=== PATIENT | female | born 1980 | race Caucasian/White ===

== ENCOUNTER 2019-03-15 18:55 | Outpatient (CLI) | payer MEDICAID, SELFPAY ==
[2017-03-23 17:31] VITALS: BMI 25.4
[2019-03-15 19:32] VITALS: BMI 32.3
[2019-03-15] MEDS: BUPRENORPHINE HCL 8 MG TAB.SUBL 12 MG SL (20:59)
[2019-03-15 22:05] VITALS: RESP 18
--- NOTE | 2019-03-16 09:57 | OB.TRI.NOTE ---
History of Present Illness Date of Service: 03/15/19 Was patient seen by the physician?: No Reason For Visit: MEDICATION Date of Service: 03/15/19 Final BLU: 05/21/19 Gestational age: 30 Weeks and 4 Days Allergies No Known Allergies Allergy (Verified 03/15/19 19:33) Physical Exam Vitals: Vital Signs Resp 18 03/15/19 22:05 NST - FHR Rate Baby A Baseline: 145 Variability:: Moderate Accelerations:: 15 x 15 Decelerations:: Variable NST Reactive:: Yes, Appropriate for gestational age FHR Category:: Category I - for > 20 min before d/c Uterine Activity:: quiet Impression/Plan 38-year-old 4 para 3 who gets care out of town and is out of her Subutex that she uses for opioid abuse disorder. We are able to confirm the patient's dose. She usually takes 8 mg of Subutex twice daily. She has not had a dose since 03/14/2019 per her report. Patient was given 12 mg sublingual. She was also having some anxiety and I offered her BuSpar but she declined. She is to return tomorrow for another dose. I had discussed with the patient over the phone and nursing discussed with the patient that if she is going to establish care locally, we would be happy to see her in our office for follow-up next week. However, we do not have an opioid use disorder clinic in our office, but work with local clinics who will prescribe the buprenorphine for her and we will coordinate the care. We will continue her at a dose that is appropriate to prevent acute withdrawal until she can follow-up on 03/17/2019 with [facility]. NST is reactive. Will be able to obtain records off of care everywhere.
== END 2019-03-15 22:05 | disposition home or self-care (01) ==
LOC: WPOUT 19:14 → WP 19:17
PROVIDERS: Visit Provider Obstetrics & Gynecology
DX: O76 Abnormality in fetal heart rate and rhythm complicating labor and delivery (principal); O09.523 Supervision of elderly multigravida, third trimester; O99.343 Other mental disorders complicating pregnancy, third trimester; F11.11 Opioid abuse, in remission; F41.9 Anxiety disorder, unspecified; Z3A.30 30 weeks gestation of pregnancy
CPT/HCPCS: 59025; 59050; 99218; G0378

== ENCOUNTER 2019-03-16 20:27 | Outpatient (CLI) | payer MEDICAID, SELFPAY ==
[2019-03-15 19:32] VITALS: BMI 32.3
[2019-03-16 20:57] VITALS: BMI 32.3
[2019-03-16] MEDS: BUPRENORPHINE HCL 8 MG TAB.SUBL 12 MG SL (21:06)
[2019-03-16 21:08] VITALS: RESP 18
--- NOTE | 2019-04-06 20:48 | OB.TRI.NOTE ---
History of Present Illness Date of Service: 03/16/19 Was patient seen by the physician?: No Reason For Visit: MEDICATION Date of Service: 03/16/19 Allergies No Known Allergies Allergy (Verified 03/16/19 20:59) Physical Exam Vitals: Vital Signs Resp 18 03/16/19 21:08 Impression/Plan 38-year-old high risk multigravida, advanced maternal age at 30 weeks 5 days located by opioid use disorder. Patient given a dose of Suboxone today, her continuing her home medication dose. She is to follow-up tomorrow with addiction medicine as scheduled, or return and we will arrange for this. Patient is transferring her care to this area from out of town, my office will contact her to schedule a follow-up obstetrical appointment.
== END 2019-03-16 21:15 | disposition home or self-care (01) ==
LOC: WPOUT 20:43 → WP 20:44
PROVIDERS: Visit Provider Obstetrics & Gynecology
DX: O09.523 Supervision of elderly multigravida, third trimester (principal); Z3A.30 30 weeks gestation of pregnancy; O99.323 Drug use complicating pregnancy, third trimester; F11.10 Opioid abuse, uncomplicated
CPT/HCPCS: 99218; G0378

== ENCOUNTER 2019-04-16 17:03 | Outpatient (CLI) | payer MEDICAID, SELFPAY ==
[2019-04-16 17:40] LABS: Hematocrit 37.5 % (37-47); Hemoglobin 12.6 g/dL (12.0-15.0); Mean Corp Hgb Conc 33.6 g/dL (32-36); Mean Corpuscular Hgb 30.4 pg (27.0-32.0); Mean Corpuscular Volume 90.4 fL (81-99); Mean Platelet Vol. 9.7 fl (6.2-12.0); Platelet Count 201 K/mm3 (150-450); RBC Distribution Width CV 12.2 % (11.6-14.6); RBC Distribution Width SD 40.2 fl (35.1-43.9); Red Blood Count 4.15 M/mm3 (4.2-5.4); White Blood Count 11.9 K/mm3 (4.4-11.0)
[2019-04-16 17:49] VITALS: BMI 33.5
[2019-04-16 18:00] LABS: Protein, Urine (Random) 21.7 mg/dL (<11.9); Protein:Creat Ratio 228 mg/g CRE (0-200)
[2019-04-16 18:07] LABS: ALB/GLOB Ratio 0.7 RATIO (0.9-2.4); AST(SGOT) 13 U/L (15-37); Alanine Aminotransfer ALT/SGPT 15 U/L (13-56); Albumin, Serum 2.7 g/dL (3.2-5.0); Alkaline Phosphatase 97 U/L (45-117); Anion Gap 7 (5-15); BUN 11 mg/dL (7-18); BUN/Creat Ratio 20.1 RATIO (10-20); Calcium,Total 8.8 mg/dL (8.5-10.1); Chloride 107 mmol/L (98-107); Creatinine, Serum 0.55 mg/dL (0.55-1.02); EST Glomerular Filtration Rate 133 mL/min (>60); Est Glom Filt Rate - Afr Amer 161 mL/min (>60); Estimated Creatinine Clearance 162.62 ml/min; Globulin 3.9 g/dL (2.2-4.2); Glucose 75 mg/dL (74-106); Potassium 3.9 mmol/L (3.5-5.1); Protein, Total 6.6 g/dL (6.4-8.2); Sodium Level 138 mmol/L (136-145); Uric Acid 3.8 mg/dL (2.6-6.0)
--- NOTE | 2019-04-21 22:13 | OB.TRI.PN ---
Progress Notes Date of Service: 04/16/19 Progress Note: at 35 weeks presented to L&D after office visit. Baby not very reactive on NST in office and BPP 6/8. BP mildly elevated and sent for further evaluation and monitoring. Denies headache, visual changes, RUQ pain. Feeling movement. O: BP120/70's NST reactive 130, moderate variability, accels A: Elevated BP without diagnosis of hypertension Equivocal NST, BPP 6/8 P: 1) BP stable, Pre-e labs normal. 2) NST reactive upon further monitoring 3) D/C home, follow up at recommended. Laboratory Studies: Laboratory Tests 04/16/19 04/16/19 04/16/19 Range/Units 17:20 17:20 17:20 WBC 11.9 H (4.4-11.0) K/mm3 RBC 4.15 L (4.2-5.4) M/mm3 Hgb 12.6 (12.0-15.0) g/dL Hct 37.5 (37-47) % MCV 90.4 (81-99) fL MCH 30.4 (27.0-32.0) pg MCHC 33.6 (32-36) g/dL RDW Std Deviation 40.2 (35.1-43.9) fl RDW Coeff of Ryley 12.2 (11.6-14.6) % Plt Count 201 (150-450) K/mm3 MPV 9.7 (6.2-12.0) fl Sodium 138 (136-145) mmol/L Potassium 3.9 (3.5-5.1) mmol/L Chloride 107 (98-107) mmol/L Carbon Dioxide 24.0 (21.0-32.0) mmol/L Anion Gap 7 (5-15) BUN 11 (7-18) mg/dL Creatinine 0.55 (0.55-1.02) mg/dL Estim Creat Clear Calc 162.62 ml/min Est GFR (MDRD) Af Amer 161 (>60) mL/min Est GFR (MDRD) Non-Af 133 (>60) mL/min BUN/Creatinine Ratio 20.1 H (10-20) RATIO Glucose 75 (74-106) mg/dL Uric Acid 3.8 (2.6-6.0) mg/dL Calcium 8.8 (8.5-10.1) mg/dL Total Bilirubin 0.20 (0.20-1.00) mg/dL AST 13 L (15-37) U/L ALT 15 (13-56) U/L Alkaline Phosphatase 97 (45-117) U/L Total Protein 6.6 (6.4-8.2) g/dL Albumin 2.7 L (3.2-5.0) g/dL Globulin 3.9 (2.2-4.2) g/dL Albumin/Globulin Ratio 0.7 L (0.9-2.4) RATIO U Random Total Protein 21.7 H (<11.9) mg/dL Urine Creatinine 95.10 (NO RANGE EST.) mg/dL Protein/Creatinin Ratio 228 H (0-200) mg/g CRE
== END 2019-04-16 18:20 | disposition home or self-care (01) ==
LOC: WPOUT 17:04 → OBT 17:05
PROVIDERS: Referring Provider Advanced Practice Midwife; Visit Provider Advanced Practice Midwife
DX: O26.893 Other specified pregnancy related conditions, third trimester (principal); R03.0 Elevated blood-pressure reading, without diagnosis of hypertension; Z3A.35 35 weeks gestation of pregnancy
CPT/HCPCS: 36415; 59025; 59050; 80053; 82570; 84156; 84550; 85027; 99218; G0378

== ENCOUNTER 2019-05-09 06:55 | Inpatient (IN) | payer MEDICAID, SELFPAY ==
[2019-05-09] VITALS (9 sets, daily range): BP systolic 116–164; BP diastolic 69–100; PULSE 64–74; RESP 18–20; TEMP 36.2–36.4; O2SAT 96–100; BMI 35.6
[2019-05-09] MEDS: Oxytocin 30 units/NS 500 ml 30 UNITS/500 ML IV.SOLN IV (15:10)
[2019-05-09] MEDS: Lactated Ringers 1,000 ML 200 ML IV (15:10)
[2019-05-09 15:30] LABS: Absolute Lymphocyte Count 3.37 X10^3/uL (0.83-4.51); Absolute Neutrophil Count 4.6 X10^3/uL (2.0-7.7); Basophil# 0.06 X10^3/uL; Basophil% 0.7 % (0-1); Eosinophil# 0.21 X10^3/uL; Eosinophils% 2.4 % (0-5); Hematocrit 38.8 % (37-47); Hemoglobin 12.7 g/dL (12.0-15.0); Lymphocyte # 3.37 X10^3/ul (4.0); Lymphocyte % 37.7 % (19-41); Mean Corp Hgb Conc 32.7 g/dL (32-36); Mean Corpuscular Hgb 30.2 pg (27.0-32.0); Mean Corpuscular Volume 92.2 fL (81-99); Mean Platelet Vol. 9.8 fl (6.2-12.0); Monocyte# 0.63 X10^3/uL; Monocyte% 7.1 % (0-10); NRBC Flagged by Analyzer 0 % (0-5); Neutrophil # 4.56 X10^3/uL (2.7-7.7); Platelet Count 175 K/mm3 (150-450); RBC Distribution Width SD 43.8 fl (35.1-43.9); Red Blood Count 4.21 M/mm3 (4.2-5.4); White Blood Count 8.9 K/mm3 (4.4-11.0)
[2019-05-09 16:15] LABS: Amphetamine Urine VISTA NEGATIVE (<1000 ng/mL); Barbiturate Urine VISTA NEGATIVE (< 200 ng/mL); Benzodiazepine Urine VISTA NEGATIVE (< 200 ng/mL); Cocaine Urine VISTA NEGATIVE (< 300 ng/mL); Ecstacy Urine VISTA NEGATIVE (< 500 ng/mL); Methadone Urine VISTA NEGATIVE (< 300 ng/mL); PCP Urine VISTA NEGATIVE (< 25 ng/mL); THC Urine VISTA POSITIVE (< 50 ng/mL); Vista UDS pH Range 6
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
--- NOTE | 2019-05-09 17:59 | PCM.HP.OB ---
History Date of Admission: 05/09/19 Final BLU: 05/09/19 Gestational age: 40 Weeks and 0 Days History of this : This is a 39 year-old, G [], P [], at 38 weeks gestational age. 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 Allergies No Known Allergies Allergy (Verified 05/09/19 09:20) Home Medications: Home Medications Buprenorphine HCl/Naloxone HCl [Buprenorphin-Naloxon 8-2 mg Sl] 8 mg SL BID 03/15/19 Vits [Prenatabs FA] 1 tab PO DAILY 03/15/19 Heparin 2 Unit/2 ml (1/ml) Syr 2 ml SQ Q12H PRN 05/09/19 Smoking Status: Current every day smoker Alcohol: None Substance Use Type: Heroin, Marijuana Number of Fetus(es): 1 NST - FHR Rate Baby A Baseline: 145 Variability:: Moderate Accelerations:: 15 x 15 Decelerations:: Late, Variable Uterine Activity:: irregular History Past Pregnancies: Past Pregnancies Delivery Date Name GA/Weeks Outcome Route Weight Gender Labor Length Anesthesia Delivery Location Provider FOB Labs: See [facility] H[facility]P Physical Exam General: Alert, Oriented x3 Abdomen: Soft, Non Tender, Non-Distended, Gravid Neurological: Cranial nerves II-XII grossly intact INTERNATIONAL ACCOUNT EXECUTIVE: Normal external genitalia Estimated gestational size: Appropriate for gestational size Cervix Dilation (cm): 2 - AROM blood tinged fluid Station: -3 Effacement (%): 70 Assessment/Plan This is a 39 year-old, at 38&2 weeks gestational age. Admit to L&D. Induction for IUGR - s/p AROM. Will restart pitocin when able. FWB - EFM overall reassuring. S/p late & variable decels. FSE placed after AROM. GBS negative. Maternal drug use - plan for social work consult. H/o HSV - no lesions. H/o GDM. H/o DVT - on lovenox. Patient with adequate pelvis.
[2019-05-09] MEDS: Lactated Ringers 500 ML 999 ML IV (18:10)
[2019-05-09] MEDS: Cefazolin 2 GM in 0.9% Normal Saline 100 ML IV (19:35)
[2019-05-09] MEDS: Sodium Citrate/Citric Acid 30 ML UDC PO (19:35)
--- NOTE | 2019-05-09 19:42 | PCM.OPRPT ---
Report of Operation Date of Procedure: 05/09/19 Surgery/Procedure Performed:: Primary low transverse section Description of Surgical Findings:: Normal maternal uterus an ovaries Delivery Classification: DOMENIC Final BLU: 05/21/19 Gestational age: 38 Weeks and 2 Days manufacturing finance manager: Hillary Gale Type of Anesthesia:: Spinal Date of Procedure: 05/09/19 Pre-Operative Diagnosis: (1) IUGR (2) Non reassuring heart tones Post-Operative Diagnosis: Same Indications: Patient was admitted for induction for IUGR. Patient was having repetitive decelerations after amniotomy and was not on pitocin. Decision made to proceed with section. Indications for : Nonreassuring Status Description of Procedure: Patient taken to OR where spinal anesthesia was placed. She was prepped and draped in normal sterile fashion in a dorsal supine position with a leftward tilt. After ensuring adequacy of anesthesia the Pfannensteil skin incision was made and carried through to the underlying fascia w/ a bovie. The fascia was incised in the midline and carried laterally with the Ponce scissors. The rectus muscles were in the midline and the peritoneum was entered bluntly. The bladder flap was dissected down with the Metzenbaum scissors and blunt dissection. The uterine incision was made with the scalpel and extended laterally w/ blunt dissection. The fetus was vertex and the head was brought to the incision in the flexed position. With good fundal pressure the head delivered The head was gently guided to allow delivery of anterior & posterior shoulders. No excess traction placed on head. Body delivered easily. The cord was clamped and cut after a delay and the infant handed off to waiting RN. The placenta was delivered w/ gentle traction and fundal massage and the uterus was exteriorized and cleared of all clots and debris. The uterine incision was closed with 1 vicryl suture in a running locked fashion. A second layer monocryl was used to imbricate the first layer and obtain hemostasis. 2 additional figure of 8 sutures were needed to obtain hemostasis. The uterus was returned to the peritoneal cavity which was cleared of all clots and debris. Pelvis was irrigated. The uterine incision was reexamined and found to be hemostatic. Some surgicel powder was placed over the uterine incision & bladder peritoneum due to the denuded areas. The parietal peritoneum was reapproximated with running 1 vicryl figure suture. The fascia was closed with looped PDS suture in a running standard fashion. The subcutaneous tissue was examined, any bleeding bovie cauterized. The subcutaneous tissue was reapproximated with 3-0 vicryl suture. The skin was closed in a subcuticular fashion by the HUMAN RESOURCES LEADER with me present in the labor and delivery suite. I performed the remainder of the procedure w/ assistance. Amniotic Membrane Rupture Type: Artificial Amniotic Fluid Description: Clear Placenta Disposition: [facility] Specimen(s) sent to pathology: None Drain: Sutton to straight drain Fluids Replaced: 1200ml Cord Entanglement: None Cord Vessel Description: 3 Vessels Esitmated Blood Loss (ml): 700ml Infant Gender: Male - Toni, weight 5-1 (1 minute): 8 (5 minute): 9 Delayed cord clamping: Yes Antibiotic Given: Ancef 2 grams IV x1, Zithromax 500 mg/5 mL X1
[2019-05-09] MEDS: Oxytocin 30 units/NS 500 ml 30 UNITS/500 ML IV.SOLN 167 UNITS IV ×2 (20:22→21:35)
[2019-05-09] MEDS: Lactated Ringers 1,000 ML 100 ML IV (21:32)
[2019-05-09 23:51] LABS: BUP Internal Control LINE = VALID (VALID); Buprenorphine Drug Screen Positive (<10 ng/mL)
[2019-05-10] VITALS (15 sets, daily range): BP systolic 111–138; BP diastolic 67–82; PULSE 65–99; RESP 14–20; TEMP 36.3–37.5; O2SAT 94–100
[2019-05-10] MEDS: Acetaminophen 500 MG Tablet 1000 MG PO (01:02)
[2019-05-10] MEDS: Buprenorphine HCl 2 MG TAB.SUBL 4 MG SL ×2 (01:03→16:09)
[2019-05-10] MEDS: DiphenhydrAMINE 25 MG Capsule PO (01:03)
--- NOTE | 2019-05-10 01:12 | NURSING ---
Late entry: 2249 This RN sent patient's prescription of suboxone to pharmacy to be locked up-will notify when patient is discharged to return to patient. 2320 Patient reported to this RN that she took 8mg SL suboxone after returning to room from c/s. Reported this to charge nurse. 2345 Patient coughing and unable to cough effectively to clear lungs. Lungs assessed and crackles noted throughout. Call placed to Dr. Brooks at 2351 to notify of lung sounds and request aerosol treatment. Orders received. Also notified Dr. Brooks of patient rating pain 9/10, unable to sit still in bed, moaning, grasping RN's hand during fundal checks. Order received for additional suboxone, encouraged tylenol and benadryl to help patient rest. 0105 Encouraged patient to pump. Patient declines and states she is in too much pain. This RN informed pt that it is important to start pumping early, or even do hand massage. Pt refused.
[2019-05-10] MEDS: Albuterol 2.5 MG/3 ML VIAL.NEB. INHALATION (01:22)
[2019-05-10] MEDS: Lactated Ringers 1,000 ML 100 ML IV (02:49)
[2019-05-10] MEDS: Ketorolac 30 MG/ML Syringe IV ×3 (03:59→15:31)
[2019-05-10 05:14] LABS: Hematocrit 35.3 % (37-47); Hemoglobin 11.9 g/dL (12.0-15.0); Mean Corp Hgb Conc 33.7 g/dL (32-36); Mean Corpuscular Hgb 31.4 pg (27.0-32.0); Mean Corpuscular Volume 93.1 fL (81-99); Mean Platelet Vol. 9.8 fl (6.2-12.0); Platelet Count 158 K/mm3 (150-450); RBC Distribution Width SD 44.3 fl (35.1-43.9); Red Blood Count 3.79 M/mm3 (4.2-5.4); White Blood Count 11.5 K/mm3 (4.4-11.0)
[2019-05-10] MEDS: Enoxaparin 40 MG/0.4 ML Syringe SC (06:07)
[2019-05-10] MEDS: BUPRENORPHINE HCL 8 MG TAB.SUBL SL ×2 (09:56→20:18)
--- NOTE | 2019-05-10 10:37 | PCM.PN.OB ---
Subjective: Patient reports some pain. She just got to [facility] to see baby. - Physical Exam General: Alert, Oriented x3 Abdomen: Soft, Non-Distended - appropriately tender, ff mid & below umb; inc - bandage c/d/i Extremities: No Calf Tenderness Vital Signs Temp Pulse Resp BP Pulse Ox 97.6 F L 70 14 122/67 H 98 05/10/19 08:25 05/10/19 08:25 05/10/19 08:25 05/10/19 08:25 05/10/19 08:25 Oxygen Delivery Method Room Air Weight: 170 lb 10.205 oz Body Mass Index (BMI) 35.6 Intake and Output for Last 24 Hours 05/08/19 05/09/19 05/10/19 23:59 23:59 23:59 Intake Total 3633.24 / 3633.24 1990. / 1989.00 Output Total 300 / 300 1500 / 1500 Balance 3333.24 / 3333.24 490.00 / 490.00 Laboratory Tests Past 24 Hrs 05/09/19 05/09/19 05/09/19 15:10 15:10 15:15 WBC 8.9 RBC 4.21 Hgb 12.7 Hct 38.8 MCV 92.2 MCH 30.2 MCHC 32.7 RDW Std Deviation 43.8 RDW Coeff of Ryley 13.0 Plt Count 175 MPV 9.8 Immature Gran % (Auto) 1.100 H Neut % (Auto) 51.0 Lymph % (Auto) 37.7 [place] % (Auto) 7.1 Eos % (Auto) 2.4 Baso % (Auto) 0.7 Absolute Neuts (auto) 4.6 Absolute Lymphs (auto) 3.37 Nucleated RBC % 0 Urine Opiates Screen NEGATIVE Ur Buprenorphine Scrn Urine Methadone Screen NEGATIVE Ur Barbiturates Screen NEGATIVE Ur Phencyclidine Scrn NEGATIVE Ur Amphetamines Screen NEGATIVE U Methamphetamin-MDMA NEGATIVE U Benzodiazepines Scrn NEGATIVE Urine Cocaine Screen NEGATIVE U Cannabinoids Screen POSITIVE H Ur Drug Screen Comment Blood Type A NEGATIVE Antibody Screen NEGATIVE Screen Baby's Blood Type Baby's DARIAN 05/09/19 05/09/19 05/10/19 15:15 22:50 05:00 WBC 11.5 H RBC 3.79 L Hgb 11.9 L Hct 35.3 L MCV 93.1 MCH 31.4 MCHC 33.7 RDW Std Deviation 44.3 H RDW Coeff of Ryley 13.0 Plt Count 158 MPV 9.8 Immature Gran % (Auto) Neut % (Auto) Lymph % (Auto) [place] % (Auto) Eos % (Auto) Baso % (Auto) Absolute Neuts (auto) Absolute Lymphs (auto) Nucleated RBC % Urine Opiates Screen Ur Buprenorphine Scrn Positive H Urine Methadone Screen Ur Barbiturates Screen Ur Phencyclidine Scrn Ur Amphetamines Screen U Methamphetamin-MDMA U Benzodiazepines Scrn Urine Cocaine Screen U Cannabinoids Screen Ur Drug Screen Comment Blood Type Antibody Screen Screen NEGATIVE Baby's Blood Type A POSITIVE Baby's DARIAN NEGATIVE Medical Necessity - Tobacco Use Smoking Status: Current every day smoker Assessment/Plan POD#1 H/o DVT -continue lovenox H/o drug use - continue subutex Pain - s/p duramorph, continue toradol & subutex ID - AF Heme - HDS, cbc reviewed GI - ADAT - adequate UOP Routine care
[2019-05-10] MEDS: 0.9% Saline Lock 10 ML Syringe IV ×2 (12:41→15:31)
--- NOTE | 2019-05-10 16:26 | NURSING ---
Addendum entered by Miriam Liz 05/10/19 16:27: Late entry for 1245 Original Note: Pt. back to bed from visiting infant in [facility] x2.5 hrs. Moves from w/c to bed with ease, needing no assistance getting into bed, and ambulating in room from w/c to bed. Pt. very eager to have dwyer cath removed and IV to SL. IV removed after 8 cc NS removed from dwyer bulb. IV to SL.
--- NOTE | 2019-05-10 20:28 | NURSING ---
Patient requesting IV to be discontinued. Toradol IV dose was due to be given at 2100. Patient stated she wanted IV out in order to go outside. HL removed at this time.
[2019-05-11] MEDS: Ibuprofen 600 MG Tablet PO ×4 (01:27→21:05)
[2019-05-11 01:30] VITALS: BP 130/82; PULSE 74; RESP 18; TEMP 37.6
[2019-05-11] MEDS: Enoxaparin 40 MG/0.4 ML Syringe SC (06:21)
[2019-05-11] MEDS: BUPRENORPHINE HCL 8 MG TAB.SUBL SL ×2 (08:27→18:17)
[2019-05-11 08:40] VITALS: BP 134/68; PULSE 73; RESP 16; TEMP 36.9
--- NOTE | 2019-05-11 12:43 | PCM.PN.OB ---
Subjective: Pain better controlled. Denies concerns today. She is in [facility] with her baby. - Physical Exam General: Alert, Oriented x3 Abdomen: Soft, Non Tender, Non-Distended - ff mid & below umb; inc - bandage c/d/i Extremities: No Calf Tenderness Vital Signs Temp Pulse Resp BP Pulse Ox 98.4 F 73 16 134/68 H 96 05/11/19 08:40 05/11/19 08:40 05/11/19 08:40 05/11/19 08:40 05/10/19 20:00 Oxygen Delivery Method Room Air Weight: 170 lb 10.205 oz Body Mass Index (BMI) 35.6 Intake and Output for Last 24 Hours 05/09/19 05/10/19 05/11/19 23:59 23:59 23:59 Intake Total 3633.24 / 3633.24 3151.67 / 3151.67 Output Total 300 / 300 3150 / 3150 Balance 3333.24 / 3333.24 1.67 / 1.67 Medical Necessity - Tobacco Use Smoking Status: Current every day smoker Assessment/Plan POD#2 Pain - continue current regimen. H/o DVT - lovenox. H/o drug abuse - on subutex. Social work consult. Routine care.
[2019-05-11] MEDS: Buprenorphine HCl 2 MG TAB.SUBL 4 MG SL ×2 (13:16→22:15)
[2019-05-11] MEDS: Acetaminophen 500 MG Tablet 1000 MG PO ×2 (13:17→22:14)
[2019-05-11 14:55] VITALS: BP 136/77; PULSE 94; RESP 16; TEMP 36.5
[2019-05-11 20:10] VITALS: BP 132/91; PULSE 101; RESP 22; TEMP 36.7; O2SAT 97
[2019-05-12 01:25] VITALS: BP 140/91; PULSE 88; RESP 18; TEMP 36.9; O2SAT 96
[2019-05-12 01:44] VITALS: PULSE 88; RESP 20
[2019-05-12] MEDS: Albuterol 2.5 MG/3 ML VIAL.NEB. INHALATION (01:44)
[2019-05-12] MEDS: Ibuprofen 600 MG Tablet PO ×2 (03:22→13:40)
[2019-05-12] MEDS: Buprenorphine HCl 2 MG TAB.SUBL 4 MG SL ×2 (03:22→13:41)
--- NOTE | 2019-05-12 04:03 | NURSING ---
This RN encouraged pt. to cough and deep breathe d/t diminished upper lung sounds bilaterally and recommendation from respiratory therapist. Pt. received a breathing treat this morning at 0144. Pt. has a dense, congested cough, but is cough weakly and not moving any mucus. This RN provided pt. with a folded sheet to use for splinting and encouraged pt. to cough deep. Pt. also encouraged to walk around hallways and stay hydrated to help break up mucus. Incentive spirometer encouraged at least 10 times every hour while awake and pt. was discouraged from smoking until mucus clears. Pt. verbalized understanding.
[2019-05-12] MEDS: Enoxaparin 40 MG/0.4 ML Syringe SC (06:33)
[2019-05-12] MEDS: Acetaminophen 500 MG Tablet 1000 MG PO ×2 (08:31→18:44)
[2019-05-12] MEDS: BUPRENORPHINE HCL 8 MG TAB.SUBL SL ×2 (08:55→18:45)
[2019-05-12 09:00] VITALS: BP 131/87; PULSE 93; RESP 18; TEMP 36.5
--- NOTE | 2019-05-12 10:15 | RAD_ITS ---
STUDY: X-RAY CHEST REASON FOR EXAM: Female, 39 years old. Chest pain. TECHNIQUE: PA and lateral views of the chest. COMPARISON: Comparison is made with prior study dated May 13, 2016. FINDINGS: Focal right middle lobe infiltrate. Follow-up is recommended. There is no demonstrated pleural abnormality. Normal size heart. Normal mediastinum and jayme. Normal visualized pulmonary arteries. Normal visualized aortic arch and descending thoracic aorta. Normal visualized thoracic spine. Normal visualized ribs, clavicles, and shoulders. There is no demonstrated abnormality of the visualized soft tissue structures of the upper abdomen. RAD/Chest PA and Lateral IMPRESSION: Focal right middle lobe infiltrate. Radiographic follow-up is recommended. Electronically Signed: Laci Danielle, at 10:55 EDT , Service support ,
[2019-05-12 13:43] VITALS: BP 139/73; PULSE 76; RESP 18; TEMP 37.1; O2SAT 99
--- NOTE | 2019-05-12 18:57 | DCINST_ITS ---
Discharge Diet: No Restrictions Discharge Activity: Return to Normal Activity, May Not Drive - for 2 weeks, May not drive while taking narcotic pain medications., May Shower, May Take a Tub Bath - in 7 days. May resume sexual activity in: 4-6 weeks Lifting Restrictions: 20 pounds Additional Activity Instructions:: Nothing in the vagina for 4-6 weeks. You may return to work/school in 6 weeks. Call your doctor if your incision/area has: Continuous Slow Oozing, Sudden Increased Bleeding, Increased Pain/ Swelling, Increased Redness, Foul Smelling Discharge Call your doctor if you observe: Fever of 101 or Higher, Using more than one pad per hour - for 2 hours Suture Line Care: Avoid Pulling/Pushing, Avoid Pinching/Bending Cleanse incision/area with: Keep Dressing Clean & Dry - remove your bandage on 05/14/2019. Incision can get wet. Wash with soap and water. Pat it dry. Additional Instructions: If you experience any of the following, contact your healthcare provider. * Bleeding that soaks a pad every hour for 2 hours * Fever 100.4 or higher * Unrelieved incision or abdominal pain * Swelling, redness, discharge or bleeding from your incision or episiotomy site * Your incision begins to separate * Problems urinating (including inability to urinate or burning while urinating). * Visual changes * Severe headache * Flu-like symptoms * Pain or redness in one of both of your breasts * Pain, warmth, tenderness or swelling in your legs, especially the calf area * Frequent nausea and vomiting * Symptoms of depression or anxiety If you experience any of the following, call 911 or go to the nearest Emergency Room. * Chest pain * Problems breathing * Seizure activity * Partial or complete paralysis of a body part, slurred speech, weakness or drooping of the face, or a sudden inability to walk or hold your balance Allergies/Adverse Reactions: Allergies No Known Allergies Allergy (Verified 05/09/19 09:20) Medications to take at Discharge Buprenorphine HCl/Naloxone HCl [Buprenorphin-Naloxon 8-2 mg Sl] 8 mg SL BID 03/15/19 Vits [Prenatabs FA ] 1 tab PO DAILY 03/15/19 Heparin 2 Unit/2 ml (1/ml) Syr 2 ml SQ Q12H PRN 09/06/19 Buprenorphine HCl 2 mg SL UD 4 Days #22 tab.subl 05/12/19 Docusate Sodium [Colace] 100 mg PO BID PRN PRN #60 cap 05/12/19 Enoxaparin Sodium [Lovenox] 40 mg SQ DAILY #30 ml 05/12/19 Ibuprofen [Motrin] 800 mg PO TID PRN PRN #60 tab 05/12/19 The following prescriptions were given: Buprenorphine HCl 2 mg SL UD 4 Days #22 tab.subl Prescription Printed Docusate Sodium [Colace] 100 mg PO BID PRN PRN #60 cap PRN Reason: Constipation Transmission Status: Pending to [facility]30 Enoxaparin Sodium [Lovenox] 40 mg SQ DAILY #30 ml Transmission Status: Pending to [facility] Ibuprofen [Motrin] 800 mg PO TID PRN PRN #60 tab PRN Reason: Pain Transmission Status: Pending to [facility] Follow-Up: Call to make an appointment with your doctor for an incision check in 1-2 weeks. You will also need a 6 week post- follow up appointment. Test results from this visit will be discussed in further detail at your follow- up appointment, if applicable. Please Follow Up With: Amber Brooks - Call to make an appointment for an incision check in 1-2 [phone] When: You will need a post check in 6 weeks in our office. Primary Care Physician: Care Physician,No Primary [Primary Care Provider] -
--- NOTE | 2019-05-12 18:58 | PCM.PN.OB ---
Subjective: Pain well controlled. Average lochia. No bowel movement yet. Regular diet. is doing okay in the special care nursery. - Physical Exam General: Alert, Cooperative, No apparent distress Abdomen: Soft, Distended - Moderately, softly, Tender - Appropriately Extremities: Edema - 2+ Skin: Incision - Her bandages clean dry and intact Vital Signs Temp Pulse Resp BP Pulse Ox 98.8 F 76 18 139/73 H 99 05/12/19 13:43 05/12/19 13:43 05/12/19 13:43 05/12/19 13:43 05/12/19 13:43 Oxygen Delivery Method Room Air Weight: 77.4 kg Body Mass Index (BMI) 35.6 Intake and Output for Last 24 Hours 05/10/19 05/11/19 05/12/19 23:59 23:59 23:59 Intake Total 3151.67 / 3151.67 Output Total 3150 / 3150 Balance 1.67 / 1.67 Medical Necessity - Tobacco Use Smoking Status: Current every day smoker Assessment/Plan Postoperative day #3 status post primary section for intolerance of labor due to IUGR. Patient has opioid use disorder. Continue baseline Subutex and will give Subutex for breakthrough pain. Prescription for the next 4 days given. She has a meeting with her business analytics specialist tomorrow. We will give stool softeners as well. 3 DVT, restarted on Lovenox postoperatively her scription for this is given
--- NOTE | 2019-05-12 19:00 | DS.PCM_ITS ---
Discharge Date and Diagnosis Date of Admission: 05/09/19 Date of Discharge: 05/12/19 Hospital Course and Treatment Imaging Results: 05/12/19 10:15 CXR [Chest PA and Lateral] [RAD] Urgent Operations: - - Primary low transverse section performed on 05/10/2019 Procedures: None Summary of Care Provided: The patient is a 39 year old female was admitted at 38 weeks gestation for natalie ction of labor due to intrauterine growth restriction and opioid use disorder. She is been on Subutex maintenance. She has a history of DVT and was on Lovenox and then heparin prophylaxis during the . And induction was initiated as she had previously had vaginal deliveries. However, due to the growth restriction, patient had intolerance of labor and underwent a primary section. This was performed without difficulty. Postoperatively the patient did well. Her Subutex dose was maintained and she was given Subutex 4 mg 3 times daily as needed for breakthrough pain along with anti-inflammatories and Tylenol. She will be discharged home on this regimen along with Lovenox for VTE prophylaxis. She is to follow-up in the office in 1-2 in 6 weeks. She has a follow-up with her addiction medicine specialist tomorrow. [] - Physical Exam Vital Signs Temp Pulse Resp BP Pulse Ox 98.8 F 76 18 139/73 H 99 05/12/19 13:43 05/12/19 13:43 05/12/19 13:43 05/12/19 13:43 05/12/19 13:43 Oxygen Delivery Method Room Air Weight: 77.4 kg Body Mass Index (BMI) 35.6 Intake and Output for Last 24 Hours 05/10/19 05/11/19 05/12/19 23:59 23:59 23:59 Intake Total 3151.67 / 3151.67 Output Total 3150 / 3150 Balance 1.67 / 1.67 Discharge Diet: No Restrictions Discharge Activity: Return to Normal Activity, May Not Drive - for 2 weeks, May not drive while taking narcotic pain medications., May Shower, May Take a Tub Bath - in 7 days. May resume sexual activity in: 4-6 weeks Additional Activity Instructions:: Nothing in the vagina for 4-6 weeks. You may return to work/school in 6 weeks. Call your doctor if your incision/area has: Continuous Slow Oozing, Sudden Increased Bleeding, Increased Pain/ Swelling, Increased Redness, Foul Smelling Discharge Call your doctor if you observe: Fever of 101 or Higher, Using more than one pad per hour - for 2 hours Suture Line Care: Avoid Pulling/Pushing, Avoid Pinching/Bending Cleanse incision/area with: Keep Dressing Clean & Dry - remove your bandage on 05/14/2019. Incision can get wet. Wash with soap and water. Pat it dry. Home Medications: Medications to take at Discharge Buprenorphine HCl/Naloxone HCl [Buprenorphin-Naloxon 8-2 mg Sl] 8 mg SL BID 03/15/19 Vits [Prenatabs FA ] 1 tab PO DAILY 03/15/19 Heparin 2 Unit/2 ml (1/ml) Syr 2 ml SQ Q12H PRN 05/09/19 Buprenorphine HCl 2 mg SL UD 4 Days #22 tab.subl 05/12/19 Docusate Sodium [Colace] 100 mg PO BID PRN PRN #60 cap 05/12/19 Enoxaparin Sodium [Lovenox] 40 mg SQ DAILY #30 ml 05/12/19 Ibuprofen [Motrin] 800 mg PO TID PRN PRN #60 tab 05/12/19 Following Prescrptions Were Given to Patient: Buprenorphine HCl 2 mg SL UD 4 Days #22 tab.subl Prescription Printed Docusate Sodium [Colace] 100 mg PO BID PRN PRN #60 cap PRN Reason: Constipation Transmission Status: Pending to [facility] Enoxaparin Sodium [Lovenox] 40 mg SQ DAILY #30 ml Transmission Status: Pending to [facility] Ibuprofen [Motrin] 800 mg PO TID PRN PRN #60 tab PRN Reason: Pain Transmission Status: Pending to [facility] Primary Care Physician: Care Physician,No Primary [Primary Care Provider] - Please Follow Up With: Amber Brooks - Call to make an appointment for an incision check in 1-2 [phone] When: You will need a post check in 6 weeks in our office. Medical Necessity - Tobacco Use Smoking Status: Current every day smoker Meaningful Use Info Meaningful Use Diagnoses (Choose all that apply): None applicable
--- NOTE | 2019-05-12 19:55 | NURSING ---
infant in [facility] will do further teaching there for .
[2019-05-12 19:56] VITALS: BP 131/81; PULSE 90; RESP 18; TEMP 37.3; TEMP 37.4; O2SAT 98
--- NOTE | 2019-05-12 21:31 | NURSING ---
1953 pt thought she had done certificate but had not papers given and will fill out and turn in pt to courtesy room status in [facility].
--- NOTE | 2019-05-13 06:21 | NURSING ---
had checked with and pt is not to take heparin but only Lovenox that she has current prescription for, went and discussed with pt that the heparin was mistakenly not taken off med list so that if she has any heparin left she is not to take only take the Lovenox. pt states understanding.
--- NOTE | 2019-05-14 16:30 | CASEMGMT ---
Social Work Labor and Delivery Unit Mother of baby has been discharged as a patient from [facility]. Baby was discharged to the [facility] for care and treatment related to hypoglycemia and LEXY monitoring. Though MOB has been discharged, MOB does remain at [facility] in a courtesy room until the baby is discharged from the [facility]. Social work remains available to assist as needed and/or indicated from the [facility]. For continuity of care of the families admitted to the [facility], this life underwriter also provides the social work to the [facility]. Referral made to [facility] ([facility]) this date for substance exposed infant. ??Brief maternal and infant histories provided including positive drug screens during , and drug screen results for mom and baby at time of delivery. ??Risk factors reviewed. ? Informed that MOB is reporting to be working with [facility] for medication assisted treatment, has a Counselor, and is living at [facility]. ? Plan:?MOB is discharged as a [facility] patient. Social work to follow for final disposition of referrals and resources from the [facility] unit. No other services requested or indicated at this time. -THUY Oliveros, BRYANNA ? ?
== END 2019-05-12 19:56 | disposition home or self-care (01) | DRG 540 ==
PROVIDERS: Admitting Provider Obstetrics & Gynecology; Referring Provider Obstetrics & Gynecology; Visit Provider Obstetrics & Gynecology
DX: O76 Abnormality in fetal heart rate and rhythm complicating labor and delivery (principal); O36.5930 Maternal care for other known or suspected poor fetal growth, third trimester, not applicable or unspecified; Z86.32 Personal history of gestational diabetes; Z86.718 Personal history of other venous thrombosis and embolism; Z3A.38 38 weeks gestation of pregnancy; Z37.0 Single live birth; O99.324 Drug use complicating childbirth; F11.10 Opioid abuse, uncomplicated; O99.334 Smoking (tobacco) complicating childbirth; F17.210 Nicotine dependence, cigarettes, uncomplicated
CPT/HCPCS: 59025; 59050; 71046; 80307; 85025; 85027; 85461; 86850; 86900; 86901; 90384; 94640; 99218; J7120; A4216; G0378; J2405; J2790

== ENCOUNTER → 2020-11-27 11:17 | Outpatient (CLI) | payer MEDICAID, SELFPAY ==
[2019-05-09 09:20] VITALS: BMI 35.6
[2020-11-27 12:03] LABS: Absolute Lymphocyte Count 4.52 X10^3/uL (0.83-4.51); Absolute Neutrophil Count 3.8 X10^3/uL (2.0-7.7); Basophil# 0.05 X10^3/uL; Basophil% 0.6 % (0-1); Eosinophil# 0.13 X10^3/uL; Eosinophils% 1.4 % (0-5); Hemoglobin 12.1 g/dL (12.0-15.0); Lymphocyte # 4.52 X10^3/ul (4.0); Lymphocyte % 50.1 % (19-41); Mean Corp Hgb Conc 32.7 g/dL (32-36); Mean Corpuscular Hgb 28.5 pg (27.0-32.0); Mean Corpuscular Volume 87.1 fL (81-99); Mean Platelet Vol. 8.9 fl (6.2-12.0); Monocyte# 0.48 X10^3/uL; Monocyte% 5.3 % (0-10); NRBC Flagged by Analyzer 0 % (0-5); Neutrophil # 3.82 X10^3/uL (2.7-7.7); Neutrophil % 42.3 % (47-70); Platelet Count 266 K/mm3 (150-450); RBC Distribution Width CV 12.5 % (11.6-14.6); Red Blood Count 4.25 M/mm3 (4.2-5.4)
[2020-11-27 13:13] LABS: ALB/GLOB Ratio 0.9 RATIO (0.9-2.4); AST(SGOT) 10 U/L (15-37); Alanine Aminotransfer ALT/SGPT 19 U/L (13-56); Albumin, Serum 3.4 g/dL (3.2-5.0); Alkaline Phosphatase 93 U/L (45-117); Amphetamine Urine VISTA NEGATIVE (<1000 ng/mL); Anion Gap 5 (5-15); BUN 10 mg/dL (7-18); BUN/Creat Ratio 12.4 RATIO (10-20); Barbiturate Urine VISTA NEGATIVE (< 200 ng/mL); Benzodiazepine Urine VISTA NEGATIVE (< 200 ng/mL); Calcium,Total 8.6 mg/dL (8.5-10.1); Chloride 105 mmol/L (98-107); Cholesterol 140 mg/dL (200); Cocaine Urine VISTA NEGATIVE (< 300 ng/mL); Creatinine, Serum 0.81 mg/dL (0.55-1.02); EST Glomerular Filtration Rate 84 mL/min (>60); Ecstacy Urine VISTA NEGATIVE (< 500 ng/mL); Est Glom Filt Rate - Afr Amer 102 mL/min (>60); Globulin 3.9 g/dL (2.2-4.2); Glucose 66 mg/dL (74-106); High Density Lipoprotein 35 mg/dL; Methadone Urine VISTA NEGATIVE (< 300 ng/mL); PCP Urine VISTA NEGATIVE (< 25 ng/mL); Potassium 3.5 mmol/L (3.5-5.1); Protein, Total 7.3 g/dL (6.4-8.2); Sodium Level 138 mmol/L (136-145); T4 Total, Thyroxin 8.5 ug/dL (4.8-13.9); THC Urine VISTA POSITIVE (< 50 ng/mL); Thyroid Stim Hormone (TSH) 0.91 uIU/mL (0.358-3.74); Triglycerides 105 mg/dL; Very Low Density Lipoprotein 21 mg/dL (5-40); Vista UDS pH Range 6
[2020-11-27 13:23] LABS: BUP Internal Control LINE = VALID (VALID); Buprenorphine Drug Screen Positive (<10 ng/mL)
[2020-11-29 08:07] LABS: T3 Total - Triiodothyronine 1.38 ng/mL (0.6-1.81)
== END ==
LOC: LAB 11:22
DX: F11.23 Opioid dependence with withdrawal (principal); F41.1 Generalized anxiety disorder; F31.62 Bipolar disorder, current episode mixed, moderate
CPT/HCPCS: 36415; 80053; 80061; 80307; 80348; 84436; 84443; 84480; 85025

== ENCOUNTER 2021-01-15 10:38 | Emergency (ER) | payer MEDICAID, SELFPAY ==
[2019-05-09 09:20] VITALS: BMI 35.6
[2021-01-15 10:40] VITALS: BP 136/83; PULSE 87; RESP 16; TEMP 36.8; O2SAT 97; BMI 37.6
--- NOTE | 2021-01-15 10:54 | EDS_ITS ---
HPI History of Present Illness Chief Complaint: Constipation Informant: patient Onset/Context/Timing Onset: Weeks Context: Gradual Onset Current Severity: Mild Maximum Severity: Moderate Narrative Narrative: She reports waking this morning with abdominal pain. This is followed by vomiting and diarrhea.Patient presents with multiple GI complaints. She reports having similar symptoms 2 weeks ago. Symptoms lasted for approximately 1 week, resolved for 2 or 3 days, and then recurred. Patient denies fever or chills. She does describe abdominal cramping and feels that she is intermittently constipated. She does report increased belching. Patient is currently on ZUBSOLV. She is currently tapering off this medication. She does report problems with constipation while being on the medication. [facility] Medical History (Updated 01/15/21 @ 13:[address] Bisi Baer MD) Genital herpes History of deep vein thrombosis History of drug abuse in remission Home Medications buprenorphine-naloxone 8 mg SL BID 03/15/19 [History Last Taken 05/09/19] buprenorphine-naloxone [Zubsolv] 3 tab SUBLINGUAL DAILY 01/15/21 [History Last Taken Unknown] divalproex 500 mg PO BID 01/15/21 [History Last Taken Unknown] docusate sodium [Dulcolax Stool Softener (dss)] 100 mg PO DAILY PRN #20 cap 01/15/21 [Rx Last Taken Unknown] lansoprazole [Prevacid] 30 mg PO DAILY #30 cap 01/15/21 [Rx Last Taken Unknown] olanzapine 15 mg PO QHS 01/15/21 [History Last Taken Unknown] ondansetron 4 mg PO Q8H PRN #10 tab 01/15/21 [Rx Last Taken Unknown] propranolol 60 mg PO DAILY 01/15/21 [History Last Taken Unknown] sulfamethoxazole-trimethoprim [Bactrim DS] 1 tab PO BID #6 tab 01/15/21 [Rx Last Taken Unknown] Allergy/AdvReac Type Severity Reaction Status Date / Time No Known Allergies Allergy Verified 01/15/21 10:44 Surgical History (Updated 01/15/21 @ 11:58 by Zachary Galaviz) History of Social History Smoking Status: Current every day smoker ROS ROS ED Constitutional Constitutional ED: Denies chills or fever(s) Eyes Eyes: Denies change in vision ENT ENT ED: Denies sore throat Cardiovascular Cardiovascular: Denies chest pain Respiratory/Chest Respiratory/Chest: Denies cough or dyspnea Gastrointestinal Gastrointestinal: Reports abdominal pain, constipation, diarrhea, nausea and vomiting Genitourinary Genitourinary ED: Reports urinary frequency; Denies dysuria Musculoskeletal Musculoskeletal: Denies back pain Integumentary Denies rash Neurologic Neurologic: Denies headache(s) or weakness Psychiatric Psychiatric: Denies anxiety or depression Endocrine Endocrinology: Denies polydipsia or polyuria Allergic/Immunologic Allergic/Immunologic ED: Denies urticaria EXAM Physical Exam Const Vital Signs: 01/15/21 10:40 01/15/21 11:57 Temperature 98.3 F Temperature Source Temporal Pulse Rate 87 Respiratory Rate 16 16 Blood Pressure 136/83 H Blood Pressure Mean 100 Pulse Ox 97 Oxygen Delivery Method Room Air Positive well nourished and well developed General Appearance ED: well developed HEENT Reports normocephalic and head/scalp atraumatic Eyes PERRL and EOMs intact bilaterally Neck supple Chest Wall inspection of chest normal and palpation of chest normal Resp normal respiratory effort and clear to auscultation bilaterally Cardio regular rate and regular rhythm GI non-tender Auscultation: hypoactive bowel sounds Palpation: soft Back/Spine no CVA tenderness Extremity normal to inspection Neuro oriented x3 and no sensory deficits noted Sensorium / Orientation: alert Motor Exam: strength 5/5 throughout Psych mental status grossly normal Skin no rashes or lesions noted MDM MDM MDM Narrative Medical decision making narrative: Patient is given Toradol, Zofran, IV fluids. Lab Data Attestation: I reviewed the patient's lab results. Labs: Laboratory Results - last 24 hr 01/15/21 01/15/21 01/15/21 11:52 11:52 11:52 WBC 10.1 RBC 4.52 Hgb 12.9 Hct 39.2 MCV 86.7 MCH 28.5 MCHC 32.9 RDW Std Deviation 39.5 RDW Coeff of Ryley 12.4 Plt Count 166 MPV 9.5 Immature Gran % (Auto) 0.600 Neut % (Auto) 61.7 Lymph % (Auto) 28.2 [place] % (Auto) 7.7 Eos % (Auto) 1.5 Baso % (Auto) 0.3 Absolute Neuts (auto) 6.2 Absolute Lymphs (auto) 2.83 Nucleated RBC % 0 Sodium 142 Potassium 4.1 Chloride 108 H Carbon Dioxide 28.0 Anion Gap 6 BUN 15 Creatinine 0.75 Estim Creat Clear Calc 131.09 Est GFR (MDRD) Af Amer 111 Est GFR (MDRD) Non-Af 91 BUN/Creatinine Ratio 20.0 Glucose 86 Calcium 8.5 Total Bilirubin 0.30 AST 19 ALT 24 Alkaline Phosphatase 77 Total Protein 7.2 Albumin 3.1 L Globulin 4.1 Albumin/Globulin Ratio 0.8 L Lipase 63 L Serum , Qual NEGATIVE Urine Color Urine Clarity Urine pH Ur Specific [place] Urine Protein Urine Glucose (UA) Urine Ketones Urine Occult Blood Urine Nitrite Urine Bilirubin Urine Urobilinogen Ur Leukocyte Esterase Urine RBC Urine WBC Ur Squamous Epith Cells Urine Bacteria Urine Mucus 01/15/21 11:52 WBC RBC Hgb Hct MCV MCH MCHC RDW Std Deviation RDW Coeff of Ryley Plt Count MPV Immature Gran % (Auto) Neut % (Auto) Lymph % (Auto) [place] % (Auto) Eos % (Auto) Baso % (Auto) Absolute Neuts (auto) Absolute Lymphs (auto) Nucleated RBC % Sodium Potassium Chloride Carbon Dioxide Anion Gap BUN Creatinine Estim Creat Clear Calc Est GFR (MDRD) Af Amer Est GFR (MDRD) Non-Af BUN/Creatinine Ratio Glucose Calcium Total Bilirubin AST ALT Alkaline Phosphatase Total Protein Albumin Globulin Albumin/Globulin Ratio Lipase Serum , Qual Urine Color Yellow Urine Clarity Sl. Cloudy Urine pH 6.5 Ur Specific [place] 1.015 Urine Protein Negative Urine Glucose (UA) Normal Urine Ketones Negative Urine Occult Blood 50 H Urine Nitrite Negative Urine Bilirubin Negative Urine Urobilinogen Normal Ur Leukocyte Esterase 500 H Urine RBC 0-5 SEEN Urine WBC 25-50 SEEN Ur Squamous Epith Cells 0 SEEN Urine Bacteria 1+ Urine Mucus 0 SEEN Radiography Diagnostic Testing: Radiology Impression KUB X-Ray 01/15/21 12:54 IMPRESSION: 1. Nonobstructive bowel gas pattern. 2. Left-sided kidney stone at 1313 Reported and signed by: Fred Mario MD Electronically Signed: Fred Mario MD at 13:12 EDT Tel , Service support , Treatment and Re-Evaluation Comments:: On repeat evaluation patient is resting comfortably. Patient does have evidence of a mild UTI will be treated with 3 days of Bactrim. Blood work is otherwise unremarkable. X-ray does not reveal significant stool load. I am suspicious that her symptoms may be triggered by her tapering of her ZUBSOLV. She does state that her last taper was 2 weeks ago when symptoms seem to flare. She does have an upcoming appointment with Dr. Roberts and I suggested talking w ith her about this. In the meantime patient will be given a prescription for Zofran, Prevacid, and Dulcolax to help with symptoms as needed. Discharge Plan Triage Chief Complaint: Constipation ED Provider: Bisi Baer Dx/Rx/DC Orders Clinical Impression: Gastroenteritis, UTI (urinary tract infection) Instructions: ED Gastroenteritis, Noninfectious, ED Urinary Tract Infections in Women Prescriptions: New ondansetron 4 mg tablet,disintegrating 4 mg PO Q8H PRN (Reason: nausea and vomiting) Qty: 10 RF: 0 sulfamethoxazole-trimethoprim [Bactrim DS] 800-160 mg tablet 1 tab PO BID Qty: 6 RF: 0 docusate sodium [Dulcolax Stool Softener (dss)] 100 mg capsule 100 mg PO DAILY PRN (Reason: constipation) Qty: 20 RF: 0 lansoprazole [Prevacid] 30 mg capsule,delayed release(DR/EC) 30 mg PO DAILY Qty: 30 RF: 0 No Action buprenorphine-naloxone 1 EACH tablet, sublingual 8 mg SL BID RF: 0 propranolol 60 mg Tablet 60 mg PO DAILY RF: 0 divalproex 500 mg Tablet Extended Release 24 Hr 500 mg PO BID RF: 0 olanzapine 15 mg Tablet 15 mg PO QHS RF: 0 Zubsolv 1.4-0.36 mg Tablet, Sublingual 3 tab SUBLINGUAL DAILY RF: 0 Primary Care Provider: Care Physician,No Primary Referrals: Asiya Hicks MD [STAFF PHYSICIAN] - As Needed Tiffani Roberts DO [STAFF PHYSICIAN] - Keep Mai appointment Care Physician,No Primary [Primary Care Provider] - Disposition Disposition: Home, self care
[2021-01-15] MEDS: 0.9% Normal Saline 1,000 ML 1000 ML IV (11:47)
[2021-01-15] MEDS: Ketorolac 30 MG/ML Syringe IV (11:50)
[2021-01-15] MEDS: Ondansetron 4 MG/2 ML Vial IV (11:50)
[2021-01-15 11:57] VITALS: RESP 16
[2021-01-15 12:08] LABS: Mucous, Urine 0 SEEN /hpf (<or=2+); Squamous Epithelial Cells - UA 0 SEEN /hpf (5-10)
[2021-01-15 12:19] LABS: Internal QC Validated? YES +Cl - CLEAR BKGD; Pregnancy, Serum, hCG Quali. NEGATIVE Negative
[2021-01-15 12:28] LABS: ALB/GLOB Ratio 0.8 RATIO (0.9-2.4); AST(SGOT) 19 U/L (15-37); Alanine Aminotransfer ALT/SGPT 24 U/L (13-56); Albumin, Serum 3.1 g/dL (3.2-5.0); Alkaline Phosphatase 77 U/L (45-117); Anion Gap 6 (5-15); BUN 15 mg/dL (7-18); Calcium,Total 8.5 mg/dL (8.5-10.1); Chloride 108 mmol/L (98-107); Creatinine, Serum 0.75 mg/dL (0.55-1.02); EST Glomerular Filtration Rate 91 mL/min (>60); Est Glom Filt Rate - Afr Amer 111 mL/min (>60); Estimated Creatinine Clearance 131.09 ml/min; Globulin 4.1 g/dL (2.2-4.2); Glucose 86 mg/dL (74-106); Lipase 63 U/L (73-393); Potassium 4.1 mmol/L (3.5-5.1); Protein, Total 7.2 g/dL (6.4-8.2); Sodium Level 142 mmol/L (136-145)
[2021-01-15 12:37] LABS: Absolute Lymphocyte Count 2.83 X10^3/uL (0.83-4.51); Absolute Neutrophil Count 6.2 X10^3/uL (2.0-7.7); Basophil# 0.03 X10^3/uL; Basophil% 0.3 % (0-1); Color, Urine Yellow (Yellow); Eosinophil# 0.15 X10^3/uL; Eosinophils% 1.5 % (0-5); Glucose, Dipstick Normal (Normal); Hematocrit 39.2 % (37-47); Hemoglobin 12.9 g/dL (12.0-15.0); Ketone-Dipstick Negative (Negative); Leukocyte Esterase-Dipstick 500 /ul (Negative); Lymphocyte # 2.83 X10^3/ul (0.83-4.51); Lymphocyte % 28.2 % (19-41); Mean Corp Hgb Conc 32.9 g/dL (32-36); Mean Corpuscular Hgb 28.5 pg (27.0-32.0); Mean Corpuscular Volume 86.7 fL (81-99); Mean Platelet Vol. 9.5 fl (6.2-12.0); Monocyte# 0.77 X10^3/uL; Monocyte% 7.7 % (0-10); NRBC Flagged by Analyzer 0 % (0-5); Neutrophil # 6.21 X10^3/uL (2.7-7.7); Neutrophil % 61.7 % (47-70); Nitrite-Dipstick Negative (Negative); Occult Blood-Urine 50 /ul (Negative); Platelet Count 166 K/mm3 (150-450); Protein-Dipstick Negative (Negative); RBC Distribution Width CV 12.4 % (11.6-14.6); RBC Distribution Width SD 39.5 fl (35.1-43.9); Red Blood Count 4.52 M/mm3 (4.2-5.4); Specific Gravity, Urine 1.015 (1.002-1.030); Urine Bilirubin Dipstick Negative (Negative); Urine Clarity Sl. Cloudy (Clear); Urine Urobilinogen Normal (Normal); Urine pH 6.5 (5.0 - 8.0); White Blood Count 10.1 K/mm3 (4.4-11.0)
[2021-01-15 12:44] LABS: Bacteria 1+ /hpf (None Seen); Red Blood Cells-Urine 0-5 SEEN /hpf (0-5); White Blood Cells 25-50 SEEN /hpf (0-5)
--- NOTE | 2021-01-15 12:54 | RAD_ITS ---
EXAM: XR ABDOMEN, 1 VIEW : 1980 CLINICAL INDICATION: abd pain TECHNIQUE: Frontal supine view of the abdomen/pelvis. This report was created using [employer] report generation technology. COMPARISON: None. FINDINGS: LOWER THORAX: No acute pathology. GASTROINTESTINAL TRACT: Unremarkable. Non-obstructive. No bowel or stomach distention. ORGANS: There is calcification overlying the left kidney. No organomegaly. BONES/JOINTS: No acute pathology. SOFT TISSUES: No acute pathology. RAD/Abdomen Single View IMPRESSION: 1. Nonobstructive bowel gas pattern. 2. Left-sided kidney stone at 1313 Reported and signed by: Fred Mario MD Electronically Signed: Fred Mario MD at 13:12 EDT Tel , Service support ,
[2021-01-15 13:56] VITALS: BP 103/77; PULSE 71; RESP 18; O2SAT 99
== END 2021-01-15 13:57 | disposition home or self-care (01) ==
PROVIDERS: Emergency Provider Emergency Medicine
DX: K52.9 Noninfective gastroenteritis and colitis, unspecified (principal); N39.0 Urinary tract infection, site not specified; N20.0 Calculus of kidney; K59.00 Constipation, unspecified; F17.200 Nicotine dependence, unspecified, uncomplicated; Z86.718 Personal history of other venous thrombosis and embolism; Z79.899 Other long term (current) drug therapy
CPT/HCPCS: 74018; 80053; 81001; 83690; 84703; 85025; 96361; 96374; 96375; 99285; J7030; A4216; J2405

== ENCOUNTER 2021-03-02 11:30 | Outpatient (RCR) | payer MEDICAID, SELFPAY ==
[2021-02-01 11:57] LABS: BUP Internal Control LINE = VALID (VALID); Buprenorphine Drug Screen Positive (<10 ng/mL)
[2021-02-01 12:06] LABS: Amphetamine Urine VISTA NEGATIVE (<1000 ng/mL); Barbiturate Urine VISTA NEGATIVE (< 200 ng/mL); Benzodiazepine Urine VISTA NEGATIVE (< 200 ng/mL); Cocaine Urine VISTA NEGATIVE (< 300 ng/mL); Ecstacy Urine VISTA NEGATIVE (< 500 ng/mL); Methadone Urine VISTA NEGATIVE (< 300 ng/mL); PCP Urine VISTA NEGATIVE (< 25 ng/mL); THC Urine VISTA POSITIVE (< 50 ng/mL); Vista UDS pH Range 7
[2021-02-21 12:56] LABS: Absolute Lymphocyte Count 4.03 X10^3/uL (0.83-4.51); Absolute Neutrophil Count 3.2 X10^3/uL (2.0-7.7); Basophil# 0.04 X10^3/uL; Basophil% 0.5 % (0-1); Eosinophil# 0.46 X10^3/uL; Eosinophils% 5.6 % (0-5); Hematocrit 40.8 % (37-47); Hemoglobin 13.1 g/dL (12.0-15.0); Lymphocyte # 4.03 X10^3/ul (0.83-4.51); Lymphocyte % 48.8 % (19-41); Mean Corp Hgb Conc 32.1 g/dL (32-36); Mean Corpuscular Hgb 27.9 pg (27.0-32.0); Mean Platelet Vol. 9.5 fl (6.2-12.0); Monocyte# 0.49 X10^3/uL; Monocyte% 5.9 % (0-10); NRBC Flagged by Analyzer 0 % (0-5); Neutrophil # 3.18 X10^3/uL (2.7-7.7); Neutrophil % 38.6 % (47-70); Platelet Count 190 K/mm3 (150-450); RBC Distribution Width CV 12.4 % (11.6-14.6); RBC Distribution Width SD 39.6 fl (35.1-43.9); Red Blood Count 4.69 M/mm3 (4.2-5.4); White Blood Count 8.3 K/mm3 (4.4-11.0)
[2021-02-21 13:14] LABS: Hemoglobin A1c 5.5 % (3.8-5.6)
[2021-02-21 13:28] LABS: ALB/GLOB Ratio 0.8 RATIO (0.9-2.4); AST(SGOT) 11 U/L (15-37); Alanine Aminotransfer ALT/SGPT 17 U/L (13-56); Albumin, Serum 3.2 g/dL (3.2-5.0); Alkaline Phosphatase 80 U/L (45-117); Anion Gap 6 (5-15); BUN 16 mg/dL (7-18); BUN/Creat Ratio 20.7 RATIO (10-20); Calcium,Total 8.4 mg/dL (8.5-10.1); Chloride 106 mmol/L (98-107); Creatinine, Serum 0.77 mg/dL (0.55-1.02); EST Glomerular Filtration Rate 88 mL/min (>60); Est Glom Filt Rate - Afr Amer 107 mL/min (>60); Globulin 4.2 g/dL (2.2-4.2); Glucose 90 mg/dL (74-106); Potassium 4.2 mmol/L (3.5-5.1); Protein, Total 7.4 g/dL (6.4-8.2); Sodium Level 140 mmol/L (136-145); Thyroid Stim Hormone (TSH) 1.43 uIU/mL (0.358-3.74)
[2021-02-21 14:48] LABS: Hepatitis C Antibody Non-Reactive (Nonreactive)
[2021-02-21 16:20] LABS: BUP Internal Control LINE = VALID (VALID); Buprenorphine Drug Screen Negative (<10 ng/mL)
[2021-02-23 14:56] LABS: BUP Internal Control LINE = VALID (VALID); Buprenorphine Drug Screen Negative (<10 ng/mL)
[2021-02-23 15:03] LABS: Amphetamine Urine VISTA NEGATIVE (<1000 ng/mL); Barbiturate Urine VISTA NEGATIVE (< 200 ng/mL); Benzodiazepine Urine VISTA NEGATIVE (< 200 ng/mL); Cocaine Urine VISTA NEGATIVE (< 300 ng/mL); Ecstacy Urine VISTA NEGATIVE (< 500 ng/mL); Methadone Urine VISTA NEGATIVE (< 300 ng/mL); PCP Urine VISTA NEGATIVE (< 25 ng/mL); THC Urine VISTA POSITIVE (< 50 ng/mL); Vista UDS pH Range 5
[2021-03-02 13:01] LABS: Amphetamine Urine VISTA NEGATIVE (<1000 ng/mL); BUP Internal Control LINE = VALID (VALID); Barbiturate Urine VISTA NEGATIVE (< 200 ng/mL); Benzodiazepine Urine VISTA NEGATIVE (< 200 ng/mL); Buprenorphine Drug Screen Negative (<10 ng/mL); Cocaine Urine VISTA NEGATIVE (< 300 ng/mL); Ecstacy Urine VISTA NEGATIVE (< 500 ng/mL); Methadone Urine VISTA NEGATIVE (< 300 ng/mL); PCP Urine VISTA NEGATIVE (< 25 ng/mL); THC Urine VISTA POSITIVE (< 50 ng/mL); Vista UDS pH Range 6
== END 2021-03-02 18:00 | disposition home or self-care (01) ==
LOC: LAB 11:30
DX: F11.23 Opioid dependence with withdrawal (principal); F41.1 Generalized anxiety disorder; F31.62 Bipolar disorder, current episode mixed, moderate
CPT/HCPCS: 36415; 80053; 80307; 83036; 84443; 85025; 86803

== ENCOUNTER → 2021-03-25 13:51 | Outpatient (CLI) | payer MEDICAID, SELFPAY ==
[2021-03-25 14:08] LABS: Lipase 66 U/L (73-393)
== END ==
PROVIDERS: Referring Provider Nurse Practitioner Family; Visit Provider Nurse Practitioner Family
DX: R10.9 Unspecified abdominal pain (principal)
CPT/HCPCS: 83690